=== PATIENT | female | born 1945 | race Caucasian/White ===

== ENCOUNTER 2016-09-19 15:06 | Inpatient (IN) | payer OTHER ==
[~2016-09-19] VITALS: Ht 152.4 cm; Wt 91.6 kg
[~2016-09-19 15:06] MED LIST: CYMBALTA 30 MG30 MG PO; FLAGYL500 MG PO; INVANZ1 GM IV; MACROBID 100 M100 MG PO; MACRODANTIN50 MG PO; MORPHINE SULFAT30 M1 PO; NEXIUM40 MG PO; OXYCONTIN80 MG PO; RESTORIL 30 MG30 MG PO; TOPROL XL 25 MG25 MG PO; XARELTO20 MG PO; ZANTAC150 MG PO
[2016-09-19 18:28] LABS: HEMOGLOBIN 15.2 gm/dl (12.3-15.3); RED BLOOD COUNT 4.76 M/UL (4.00-5.10)
[2016-09-20 00:48] LABS: HEMOGLOBIN 15.7 gm/dl (12.3-15.3); RED BLOOD COUNT 4.96 M/UL (4.00-5.10); WHITE BLOOD COUNT 17.7 K/UL (4.5-11.0)
[2016-09-20] MEDS ORDERED: CATAPRES 0.1MG0.1 MG PO (05:24)
[2016-09-20 08:02] LABS: HEMOGLOBIN 14.6 gm/dl (12.3-15.3); RED BLOOD COUNT 4.54 M/UL (4.00-5.10); WHITE BLOOD COUNT 17.2 K/UL (4.5-11.0)
[2016-09-21 03:51] LABS: HEMOGLOBIN 13.6 gm/dl (12.3-15.3); RED BLOOD COUNT 4.29 M/UL (4.00-5.10); WHITE BLOOD COUNT 11.2 K/UL (4.5-11.0)
--- NOTE | 2016-09-21 18:29 | NUR ---
PICC LINE RIGHT BASILIC IN PLACED. DRESSING DRY, CLEAN AND INTACT
[2016-09-22 04:23] LABS: HEMOGLOBIN 12.4 gm/dl (12.3-15.3); RED BLOOD COUNT 3.97 M/UL (4.00-5.10); WHITE BLOOD COUNT 8.1 K/UL (4.5-11.0)
[2016-09-22 04:43] LABS: BUN/CREATININE RATIO 12 (0-10)
[2016-09-22] MEDS ORDERED: AUGMENTIN 875-1 EACH PO (19:28)
[2016-09-22] MEDS ORDERED: ZOFRAN4 MG PO (19:30)
[2016-09-22] MEDS ORDERED: LORTAB 7.5-3251 EACH PO (19:35)
== END 2016-09-22 20:45 | disposition home or self-care (01) | DRG 871 ==
LOC: ER1 15:06 → MED SURG 4 22:35 → ZEROF 22:35 → CCU 22:35 → MED SURG 4 09-21 06:00
PROVIDERS: Emergency Medicine; Internal Medicine; ADMIT Internal Medicine
PROC: 02HV33Z Insertion of Infusion Device into Superior Vena Cava, Percutaneous Approach (ICD-10-PCS; principal; 2016-09-21)
DX: A41.9 Sepsis, unspecified organism (principal); G93.40 Encephalopathy, unspecified; E87.2 Acidosis; D68.51 Activated protein C resistance; N17.9 Acute kidney failure, unspecified; F11.20 Opioid dependence, uncomplicated; N39.0 Urinary tract infection, site not specified; K21.9 Gastro-esophageal reflux disease without esophagitis; J45.20 Mild intermittent asthma, uncomplicated; E86.0 Dehydration; E87.6 Hypokalemia; E83.42 Hypomagnesemia; G89.4 Chronic pain syndrome; K52.9 Noninfective gastroenteritis and colitis, unspecified; J45.909 Unspecified asthma, uncomplicated; Z79.01 Long term (current) use of anticoagulants; Z86.711 Personal history of pulmonary embolism; Z86.718 Personal history of other venous thrombosis and embolism; Z88.1 Allergy status to other antibiotic agents; Z89.511 Acquired absence of right leg below knee; Z88.2 Allergy status to sulfonamides
CPT/HCPCS: 36415; 70450; 71010; 71250; 80048; 80053; 81001; 82140; 82550; 82553; 83605; 83690; 83735; 83874; 84132; 84484; 85025; 85027; 85610; 85730; 87040; 87086; 93005; 96361; 96365; 96367; 96375; 99285; C9113; J0692; J2060; J2270; J2405; J3370; J3475; J3480; J7030; J7050

== ENCOUNTER 2016-10-18 02:53 | Emergency (ER) | payer OTHER ==
[~2016-10-18 02:53] MED LIST changes: +AUGMENTIN 875-1 EACH PO; +CATAPRES 0.1MG0.1 MG PO; +LORTAB 7.5-3251 EACH PO; +ZOFRAN4 MG PO
[2016-10-18 05:30] LABS: HEMOGLOBIN 15.5 gm/dl (12.3-15.3); RED BLOOD COUNT 4.95 M/UL (4.00-5.10); WHITE BLOOD COUNT 10.7 K/UL (4.5-11.0)
== END 2016-10-18 12:30 | disposition home or self-care (01) ==
LOC: ER1 02:53
PROVIDERS: Emergency Medicine
DX: R41.82 Altered mental status, unspecified (principal); R25.9 Unspecified abnormal involuntary movements; G89.4 Chronic pain syndrome; F11.20 Opioid dependence, uncomplicated; I10 Essential (primary) hypertension; J45.909 Unspecified asthma, uncomplicated; Z86.718 Personal history of other venous thrombosis and embolism; Z79.01 Long term (current) use of anticoagulants
CPT/HCPCS: 36415; 51702; 70450; 71010; 72125; 80053; 81001; 82550; 82553; 83605; 83690; 83874; 83880; 84484; 85025; 85610; 85730; 87040; 87086; 93005; 96361; 96374; 96375; 99285; J2060; J7050

== ENCOUNTER 2020-09-05 20:23 | Observation (INO) | payer MEDICARE, OTHER ==
[~2020-09-05] VITALS: Ht 157.5 cm; Wt 86.9 kg
[~2020-09-05 20:23] MED LIST changes: +ALPRAZOLAM0.5 MG PO; +AMLODIPINE BESY10 MG PO; +BACTRIM DS TAB1 EACH PO; +CEFUROXIME250 MG PO; +COZAAR100 MG PO; +DIFLUCAN150 MG PO; +ELMIRON100 MG PO; +GABAPENTIN800 MG PO; +K-DUR TAB 20 M20 MEQ PO; +K-TAB ER20 MEQ PO; +KEFLEX CAP 500500 MG PO; +LIDOCAINE-PRILO30 GM TOP; +LISINOPRIL40 MG PO; +LOPRESSOR50 MG PO; +LOSARTAN POTAS100 MG PO; +MELOXICAM15 MG PO; +METOPROLOL TART50 MG PO; +MIRALAX17 GM PO; +NAPROSYN500 MG PO; +NEURONTIN 400400 MG PO; +NEURONTIN800 MG PO; +NORCO 5-325 TA1 EACH PO; +NORCO 7.5-3251 EACH PO; +NORVASC10 MG PO; +OXYCODONE-ACET1 EACH PO; +OXYCONTIN15 MG PO; +QUETIAPINE FUM100 MG PO; +ROXICODONE15 MG PO; +SEROQUEL100 MG PO; +SEROQUEL200 MG PO; +TAMIFLU75 MG PO; +TRILEPTAL150 MG PO; +Voltaren Gel 1 % TOP; +XANAX1 MG PO; +XARELTO10 MG PO; +ZESTRIL40 MG PO
[2020-09-05 20:56] LABS: HEMOGLOBIN 13.9 gm/dl (12.3-15.3); RED BLOOD COUNT 4.25 M/UL (4.00-5.10); WHITE BLOOD COUNT 4.8 K/UL (4.5-11.0)
[2020-09-05 21:13] LABS: BUN/CREATININE RATIO 15 (0-10)
[2020-09-06] MEDS ORDERED: XANAX1 MG PO (00:08)
[2020-09-06 10:43] LABS: BUN/CREATININE RATIO 13 (0-10)
[2020-09-07 03:36] LABS: HEMOGLOBIN 13.8 gm/dl (12.3-15.3); RED BLOOD COUNT 4.23 M/UL (4.00-5.10)
[2020-09-07 03:54] LABS: WHITE BLOOD COUNT 6.9 K/UL (4.5-11.0)
[2020-09-07 03:56] LABS: BUN/CREATININE RATIO 17 (0-10)
[2020-09-07] MEDS ORDERED: ASPIRIN EC81 MG PO (14:26)
[2020-09-07] MEDS ORDERED: XARELTO 10 MG T10 MG PO (14:26)
[2020-09-07] MEDS ORDERED: ATORVASTATIN CA20 MG PO (14:26)
[2020-09-07] MEDS ORDERED: MELATONIN5 M2 PO (14:28)
[2020-09-07] MEDS ORDERED: VITAMIN D325 MCG PO (14:33)
[2020-09-07] MEDS ORDERED: HYDRALAZINE HCL25 MG PO (14:40)
[2020-09-07] MEDS ORDERED: CLEOCIN HCL300 MG PO (14:52)
--- NOTE | 2020-09-07 15:11 | NUR ---
09/07/20 1500 INSTRUCTED ON USE OF INCENTIVE SPIROMETER
== END 2020-09-07 14:23 | disposition home or self-care (01) ==
LOC: ER1 20:23 → CDU 23:36 → MED SURG 4 23:36 → CDU 23:36 → MED SURG 4 09-06 16:29
PROVIDERS: Emergency Medicine; Internal Medicine; ADMIT Internal Medicine
DX: R41.82 Altered mental status, unspecified (principal); G47.00 Insomnia, unspecified; F41.9 Anxiety disorder, unspecified; K57.90 Diverticulosis of intestine, part unspecified, without perforation or abscess without bleeding; E78.5 Hyperlipidemia, unspecified; G89.29 Other chronic pain; G62.9 Polyneuropathy, unspecified; E66.9 Obesity, unspecified; D68.51 Activated protein C resistance; F11.20 Opioid dependence, uncomplicated; E55.9 Vitamin D deficiency, unspecified; E87.6 Hypokalemia; K21.9 Gastro-esophageal reflux disease without esophagitis; I11.9 Hypertensive heart disease without heart failure; I16.0 Hypertensive urgency; Z20.822 Contact with and (suspected) exposure to COVID-19; Z89.511 Acquired absence of right leg below knee; Z86.718 Personal history of other venous thrombosis and embolism; Z90.49 Acquired absence of other specified parts of digestive tract; Z98.84 Bariatric surgery status; Z88.0 Allergy status to penicillin; Z88.1 Allergy status to other antibiotic agents; Z88.2 Allergy status to sulfonamides; Z88.8 Allergy status to other drugs, medicaments and biological substances; Z91.048 Other nonmedicinal substance allergy status; Z79.899 Other long term (current) drug therapy
CPT/HCPCS: ECHO; 36415; 51701; 70450; 70551; 71045; 71046; 80053; 80061; 80307; 81001; 82140; 82550; 82553; 82607; 82746; 82962; 83036; 83690; 83735; 83874; 84100; 84439; 84443; 84484; 84550; 85025; 85027; 85610; 85652; 85730; 86140; 93005; 93306; 93880; 97161; 99285; G0378; J0360; U0002

== ENCOUNTER 2020-11-02 17:39 | Emergency (ER) | payer SELFPAY ==
[~2020-11-02 17:39] MED LIST changes: +ASPIRIN EC81 MG PO; +ATORVASTATIN CA20 MG PO; +CLEOCIN HCL300 MG PO; +HYDRALAZINE HCL25 MG PO; +MELATONIN5 M2 PO; +VITAMIN D325 MCG PO; +XARELTO 10 MG T10 MG PO
== END 2020-11-02 18:30 | disposition left against medical advice (07) ==
LOC: ER1 17:39
DX: S09.90XA Unspecified injury of head, initial encounter (principal); M54.5 Low back pain; M54.2 Cervicalgia; I10 Essential (primary) hypertension; Z88.8 Allergy status to other drugs, medicaments and biological substances; V49.40XA Driver injured in collision with unspecified motor vehicles in traffic accident, initial encounter; Y92.410 Unspecified street and highway as the place of occurrence of the external cause
CPT/HCPCS: 99283

== ENCOUNTER 2021-11-16 00:44 | Emergency (ER) | payer MEDICARE ==
[2021-11-16 01:45] LABS: RED BLOOD COUNT 4.71 M/UL (4.00-5.10); WHITE BLOOD COUNT 6.9 K/UL (4.5-11.0)
[2021-11-16 02:19] LABS: BUN/CREATININE RATIO 18 (0-10)
[2021-11-16] MEDS ORDERED: ZOFRAN ODT 4 MG4 MG PO (03:39)
== END 2021-11-16 04:00 | disposition home or self-care (01) ==
LOC: ER1 00:44
PROVIDERS: Family Medicine
DX: R11.2 Nausea with vomiting, unspecified (principal); F41.9 Anxiety disorder, unspecified; G89.29 Other chronic pain; G62.9 Polyneuropathy, unspecified; I10 Essential (primary) hypertension; Z91.14 Patient's other noncompliance with medication regimen; Z91.040 Latex allergy status
CPT/HCPCS: 70450; 71045; 80053; 80307; 81001; 82140; 82550; 82553; 83605; 83690; 83735; 84484; 85025; 85610; 87086; 93005; 96374; 99285; G0480; J2405